=== PATIENT | male | born 1985 | race Hispanic/Latino ===

== ENCOUNTER 2020-02-15 20:03 | Emergency (ER) | payer SELFPAY ==
--- NOTE | 2020-02-15 21:25 | RAD ---
Frontal radiograph chest: 02/15/2020 HISTORY: Cough and sore throat FINDINGS: Extensive interstitial and alveolar opacity noted throughout the perihilar regions and both lung bases, left greater than right. No pneumothorax or pleural fluid. IMPRESSION: Extensive interstitial and alveolar opacity suggests atypical infectious pneumonitis, suc h as Covid 19 pneumonia
[2020-02-15] MEDS ORDERED: Ibuprofen 800 MG TAB ONE (21:43)
[2020-02-15] MEDS ORDERED: Acetaminophen 325 MG TAB ONE (21:43)
[2020-02-16 07:14] LABS: SARS-CoV-2 MS2 Positive; SARS-CoV-2 N Gene Positive; SARS-CoV-2 S Gene Positive; SARS-CoV-2 by NAA DETECTED (NotDetected); SARS-CoV-2 orf1ab Positive
== END 2020-02-15 23:04 | disposition home or self-care (01) ==
LOC: ERS 20:03
DX: U07.1 COVID-19 (principal); J12.89 Other viral pneumonia
CPT/HCPCS: 71045; 87635; 87804; U0003

== ENCOUNTER 2022-05-04 12:05 | Emergency (ER) | payer OTHER, SELFPAY ==
[2022-05-04] MEDS ORDERED: Ketorolac Tromethamine 30 MG/ML VIAL ONE (12:34)
[2022-05-04] MEDS ORDERED: Lidocaine 1% PF 5 ML VIAL ONE (14:52)
[2022-05-04] MEDS ORDERED: Boostrix 0.5 ML (Tdap) VIAL (>/=7 yrs of age) ONE (14:55)
== END 2022-05-04 17:06 | disposition home or self-care (01) ==
LOC: ERS 12:05
DX: S61.011A Laceration without foreign body of right thumb without damage to nail, initial encounter (principal); F17.210 Nicotine dependence, cigarettes, uncomplicated; W45.8XXA Other foreign body or object entering through skin, initial encounter
CPT/HCPCS: 12002; 90715; 96372; J1885